=== PATIENT | female | born 1960 | race Caucasian/White ===

== ENCOUNTER 2017-07-08 10:35 | Emergency (ER) | payer OTHER ==
--- NOTE | 2017-07-08 10:40 | EDPHY ---
H & P HPI/ROS: Chief Complaint: Back and ankle pain HPI: 56-year-old with a history of scoliosis, chronic back pain status post laminectomy chronic ankle pain presenting with worsening ankle pain for the last 4-5 days. Patient states she has known arthritis in her left ankle but the pain is been worse. She is able to ambulate. No recent falls or traumatic injuries. No new numbness or weakness. No calf pain or swelling. No redness. Patient states the pain is primarily in the lateral aspect of her ankle. Is similar to prior episodes. She has been taking 1 naproxen the day this week without any relief. This morning she took half a Percocet. She is presenting today requesting an x-ray to see if there been any changes as her last x-ray was about 4 years ago. She has not followed up with primary care physician, back specialist. She has not been seen by Orthopedics. She is ambulating with discomfort. Her back pain is a little bit worse but primarily at its baseline. ROS: 10 point Review of Systems is negative except as noted in the HPI. PMH: Asthma, hypertension, congestive heart failure, arthritis, scoliosis, status post laminectomy Social History: No smoking, no alcohol, no recreational drug use Family History: non-contributory Physical Exam: Gen: Awake, Alert, No Distress, obese HEENT: Nose: no rhinorrhea Eyes: PERRLA, EOMI Mouth: Moist mucosa Neck: Supple, no JVD Chest: nontender, lungs clear to auscultation Heart: S1, S2 normal, no murmur Abd: Soft, non-tender, no guarding Back: no CVA tenderness, no midline tenderness Ext: no edema, non-tender, she has full range of motion of her left hip, left knee, left ankle. There is no bony tenderness. There is no redness. She has 2 + dorsalis pedis pulses. Sensations intact in all dermatomes. Skin: no rash Neuro: CN II-XII intact, Sensation grossly intact, Strength 5/5 in bilateral upper and lower extremities - Personal History Tetanus Vaccine Date: within 10 years - Medical/Surgical History Hx Asthma: Yes Hx Chronic Respiratory Disease: No Hx Diabetes: No Hx Cardiac Disease: Yes Hx Renal Disease: No Hx Cirrhosis: No Hx Alcoholism: No Hx HIV/AIDS: No Hx Splenectomy or Spleen Trauma: No Other PMH: asthma, HTN, CHF. arthritis. Laminectomy on back. toe surg - Social History Smoking Status: Current every day smoker Constitutional: Initial Vital Signs Temperature (C) 36.9 C 07/08/17 10:43 Heart Rate 85 07/08/17 10:43 Respiratory Rate 20 07/08/17 10:43 O2 Sat (%) 95 07/08/17 10:43 O2 Delivery Mode Room Air Allergies/Adverse Reactions: No Known Allergies Allergy (Verified 08/14/16 10:06) Home Medications: Medication Instructions Recorded Advair 08/08/10 LISINOPRIL 08/08/10 Albuterol [Proventil Inhaler] 1 - 2 puffs IH Q4H #1 mdi 08/14/16 Naproxen 08/14/16 Oxycodone HCl 08/14/16 Medical Decision Making ED Course/Re-evaluation: 56-year-old woman with new exacerbation of her chronic pain. She has not been optimizing her home medications. She has not been following up with her primary care physician. I do not see an indication for any imaging at this time. She has no new focal tenderness. No deformities. No traumatic injuries. No new the neurologic symptoms. No findings suggestive of DVT, fracture, or acute spinal process. She has no erythema. I have recommended that she maximize her anti-inflammatory use. She can then take Percocet that she artery has for breakthrough pain. I have suggested she follow up with Orthopedics for further evaluation. She also have spine surgery in place. I have told her that any imaging today will not make any changes to her management at this time. She would benefit most from evaluation by Orthopedics and Spine prior to any imaging. That can be obtained in the office as well. Patient is agreement. Will be discharged with the pain management plan as outlined, she will follow up as needed. She will return for any worsening symptoms or concerns. Departure - Departure Disposition: Home, Routine, Self-Care Clinical Impression: Ankle pain, Back pain Condition: Fair Instructions: Arthralgia (ED), Back Pain (ED) Additional Instructions: Follow up with you PCP, back specialist and Orthopedics in 3-4 days. Continue taking naproxen according to package instructions. Take an over the counter antacid such as Pepcid while taking the Naproxen. You may take your percocet as prescribed for breakthrough pain. Referrals: JESSI DOHERTY [Other] - As per Instructions Sreedhar Craig MD [Medical Doctor] - As per Instructions
[2017-07-08 10:47] VITALS: PULSE 85; RESP 20; TEMP 98.4; O2SAT 95
[2017-07-08 11:48] VITALS: BP 159/93
== END 2017-07-08 11:16 | disposition home or self-care (01) ==
LOC: CED 10:35
DX: M54.9 Dorsalgia, unspecified (principal); M25.572 Pain in left ankle and joints of left foot; J45.909 Unspecified asthma, uncomplicated; I11.0 Hypertensive heart disease with heart failure; I50.9 Heart failure, unspecified; F17.200 Nicotine dependence, unspecified, uncomplicated

== ENCOUNTER → 2018-06-19 | Outpatient (CLI) | payer OTHER | LOC: FIMAGING 13:24 | PROVIDERS: ATTEND Internal Medicine Geriatric Medicine | DX: M51.34 Other intervertebral disc degeneration, thoracic region (principal); M47.894 Other spondylosis, thoracic region; M41.86 Other forms of scoliosis, lumbar region; M48.061 Spinal stenosis, lumbar region without neurogenic claudication; M51.36 Other intervertebral disc degeneration, lumbar region ==

== ENCOUNTER 2018-07-06 13:06 | Emergency (ER) | payer OTHER, MEDICAID ==
--- NOTE | 2018-07-06 13:43 | EDPHY ---
H & P Time Seen by Provider: 07/06/18 13:17 HPI/ROS: HPI Rapid weight gain. History of CHF. 57-year-old female by ambulance. This patient has a complicated past medical history. She was sent to the emergency department from the office of her primary care physician, Dr. Mica Benjamin, with complaint of rapid weight gain, 20 lb over the last [address] Benjamin is requesting that we get a CT abdomen and pelvis with IV contrast to evaluate for possible lymphoma as well as bilateral lower extremity ultrasounds. She is also requesting a CHF workup. The patient does have a history of CHF and cardiomyopathy. She also has a history of a stroke in February of this year. 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 Patient denies being significantly shortness of breath. She has recently been treated with compression stockings by her primary care physician. She is not on Lasix. She does not have any other complaints. Dr. Benjamin tells me the patient does not have any contraindications to Lasix. ROS: Constitutional: No fever, no chills. As above. Eyes: No discharge. No changes in vision. ENT: No sore throat. No nasal congestion or rhinorrhea. Respiratory: No cough. No shortness of breath. Cardiac: No chest pain, no palpitations. Gastrointestinal: No abdominal pain, no vomiting, no diarrhea. Genitourinary: No hematuria. No dysuria or increased frequency with urination. Musculoskeletal: No back pain. No neck pain. No myalgias or arthralgias. Skin: No rashes. Neurological: No headache. No focal weakness or altered sensation. Past medical history: Asthma, hypertension, CHF, cardiomyopathy, arthritis, as above. Social history: Nonsmoker. She is here by herself. No alcohol. Physical Exam: General Appearance: Alert, no distress. Morbid obesity. This patient is responding to questions appropriately and in full sentences. This patient appears well-hydrated and well-nourished. Eyes: Pupils equal and round no pallor or injection. No lid edema, erythema or injection. Respiratory: There are no retractions, lungs are clear to auscultation anteriorly with good air movement bilaterally. No tachypnea. Cardiovascular: Regular rate and rhythm. Distant heart sounds. No murmur. Gastrointestinal: Obese habitus. Abdomen is soft and nontender, no masses, bowel sounds normal. No focal tenderness at McBurney's point. No Hamilton sign. Neurological: Motor sensory function is grossly intact. Cranial nerves are normal. Gait is normal. Skin: Warm and dry, no rashes. Musculoskeletal: Neck is supple and nontender. Extremities are symmetrical with 2+ pitting edema and compression stockings on both legs. All joints range without pain or impingement. Psychiatric: No agitation. No depression. Database: EKG: EKG time is 3:04 p.m.; EKG shows a narrow complex normal sinus rhythm with a ventricular rate of 62. Borderline T-wave changes. PVCs noted. The MO, QRS, QT intervals are within normal limits. There are no ST-T wave changes indicative of ischemic or injury pattern. No evidence of right heart strain. Interpreted by me. Imaging: Chest x-ray AP portable; the cardiac mediastinal silhouette is unremarkable.No evidence of infiltrate or pneumothorax. No acute cardiopulmonary disease process noted. Interpreted by me. CT abdomen and pelvis with IV contrast: This study is essentially negative for significant pathology. Soft tissue edema noted. No obstructive process or other reason for the patient's recent weight gain. Results were discussed with staff radiologist Dr. Stone Whalen. Doppler ultrasounds of the lower extremities: Extensive bilateral symmetric soft tissue edema. No evidence of DV T. Results were discussed with staff radiologist Dr. Bandar Baker. Procedures: Emergency department course: Triage vital signs reviewed. She is moderately hypertensive. Vital signs otherwise normal. She is 94% on room air. IV placed. She was placed on a picker tender helper. EKG obtained and reviewed by myself. 3:30 p.m., discussed the patient's emergency department workup with her primary care physician Dr. Benjamin. Her workup has essentially been unremarkable with no clear etiology for her recent weight gain and fluid retention in her lower extremities. I am still waiting on a urinalysis. However, with a normal BUN and creatinine is significant nephrotic syndrome is unlikely. The patient will be given 40 mg of IV Lasix in the emergency department. Plan will then be to discharge her home with follow up with Dr. Benjamin who will see her tomorrow. 3:45 p.m., patient re-evaluated. Resting comfortably at this time. Results of emergency department workup reviewed with her thoroughly. Plan of management as above discussed. She feels comfortable going home. She understands her follow-up with Dr. Benjamin. Return to emergency department precautions were reviewed with her. All of her questions were answered. She was discharged from the emergency department in good condition. Differential Diagnosis: The differential diagnosis on this patient includes but is not limited to CHF, lymphoma, hypoalbuminemia. DVT, PE unlikely. This represents a partial list of diagnoses considered. These considerations are based on history, physical exam, past history, reassessment and diagnostic testing. Smoking Status: Former smoker Constitutional: Initial Vital Signs Temperature (C) 37 C 07/06/18 13:11 Heart Rate 69 07/06/18 13:11 Respiratory Rate 18 07/06/18 13:11 Blood Pressure 146/75 H 07/06/18 13:11 O2 Sat (%) 94 07/06/18 13:11 O2 Delivery Mode Room Air Allergies/Adverse Reactions: No Known Allergies Allergy (Verified 08/14/16 10:06) Home Medications: Medication Instructions Recorded ALENDRONATE SODIUM 07/06/18 Advair 250/50 (*) 07/06/18 Aspirin 81mg (*) 07/06/18 Bactrim DS 07/06/18 Nicoderm Cq 07/06/18 Omeprazole 07/06/18 Pravastatin Sodium 07/06/18 Prednisone 07/06/18 Toprol Xl 07/06/18 Vitamin B Complex 07/06/18 Vitamin D3 07/06/18 azaTHIOprine 07/06/18 traMADol 07/06/18 Medical Decision Making - Diagnostics Imaging Results: Imaging Impressions Chest X-Ray 07/06/18 13:29 Impression: No source for weight gain identified. Abdomen CT 07/06/18 13:37 Impression: Scattered areas of subcutaneous fat edema, greatest in the right flank, where there is also skin edema. Otherwise no source for weight gain identified. General information for patients regarding this examination can be found at [email or web address]. If you have questions or comments about this report, please contact me at (hospital) or [phone] (cell). Extremity Venous Study 07/06/18 13:37 Impression: No deep venous thrombosis bilateral legs. Results called to Dr. Javan Deng at 2:20 PM - Data Points Laboratory Results: Laboratory Results 07/06/18 13:15 07/06/18 13:15 07/06/18 07/06/18 07/06/18 13:15 13:15 13:15 WBC 8.38 10^3/uL 10^3/uL (3.80-9.50) RBC 4.40 10^6/uL 10^6/uL (4.18-5.33) Hgb 13.8 g/dL g/dL (12.6-16.3) Hct 41.9 % % (38.0-47.0) MCV 95.2 fL fL (81.5-99.8) MCH 31.4 pg pg (27.9-34.1) MCHC 32.9 g/dL g/dL (32.4-36.7) RDW 15.7 % H % (11.5-15.2) Plt Count 190 10^3/uL 10^3/uL (150-400) MPV 10.8 fL fL (8.7-11.7) Neut % (Auto) 89.5 % H % (39.3-74.2) Lymph % (Auto) 5.4 % L % (15.0-45.0) Finney % (Auto) 3.6 % L % (4.5-13.0) Eos % (Auto) 0.0 % L % (0.6-7.6) Baso % (Auto) 0.4 % % (0.3-1.7) Nucleat RBC Rel Count 0.0 % % (0.0-0.2) Absolute Neuts (auto) 7.50 10^3/uL H 10^3/uL (1.70-6.50) Absolute Lymphs (auto) 0.45 10^3/uL L 10^3/uL (1.00-3.00) Absolute Monos (auto) 0.30 10^3/uL 10^3/uL (0.30-0.80) Absolute Eos (auto) 0.00 10^3/uL L 10^3/uL (0.03-0.40) Absolute Basos (auto) 0.03 10^3/uL 10^3/uL (0.02-0.10) Absolute Nucleated RBC 0.00 10^3/uL 10^3/uL (0-0.01) Immature Gran % 1.1 % % (0.0-1.1) Immature Gran # 0.09 10^3/uL 10^3/uL (0.00-0.10) RBC/WBC/PLT Morphology TNP Platelet Estimate TNP Sodium 140 mEq/L mEq/L (135-145) Potassium 4.4 mEq/L mEq/L (3.3-5.0) Chloride 106 mEq/L mEq/L (97-110) Carbon Dioxide 27 mEq/l mEq/l (22-31) Anion Gap 7 mEq/L mEq/L (6-14) BUN 17 mg/dL mg/dL (7-23) Creatinine 1.0 mg/dL mg/dL (0.6-1.0) Estimated GFR 57 Glucose 125 mg/dL H mg/dL (70-100) Calcium 9.4 mg/dL mg/dL (8.5-10.4) Total Bilirubin 0.7 mg/dL mg/dL (0.1-1.4) Conjugated Bilirubin 0.1 mg/dL mg/dL (0.0-0.5) Unconjugated Bilirubin 0.6 mg/dL mg/dL (0.0-1.1) AST 19 IU/L IU/L (14-46) ALT 27 IU/L IU/L (9-52) Alkaline Phosphatase 60 IU/L IU/L (38-126) Troponin I 0.015 ng/mL ng/mL (0.000-0.034) NT-Pro-B Natriuret Pep 413 pg/mL H pg/mL (0-125) Total Protein 6.1 g/dL L g/dL (6.3-8.2) Albumin 3.8 g/dL g/dL (3.5-5.0) Departure - Departure Disposition: Home, Routine, Self-Care Clinical Impression: Rapid weight gain, Fluid retention in legs Condition: Good Instructions: Leg Edema (ED) Additional Instructions: Read and follow provided instructions. Follow-up with your primary care physician, Dr. Mica Benjamin, tomorrow for re- evaluation. I spoke with her twice in the emergency department. She is aware of your test results and will see you tomorrow. Take your medication as prescribed. Return to the emergency department for worsening symptoms, chest pain, difficulty breathing or other serious concerns. Referrals: Patient,NotPresent [Primary Care Provider] - As per Instructions
[2018-07-06 13:48] LABS: PLATELET COUNT 190 10^3/uL (150-400)
[2018-07-06] MEDS ORDERED: IOPAMIDOL (ISOVUE-300) 100 ML BTL ONE ×2 (13:55→14:21)
[2018-07-06] MEDS ORDERED: FUROSEMIDE 40 MG/4 ML VIAL IVP ONE (15:15)
--- NOTE | 2018-07-06 16:44 | ASMTLACE ---
LACE Length of stay for Answers: Less than 1 day current admission Acuity / Level of Answers: No Care: Did the patient have an inpatient admission? Comorbidities - select Answers: Cerebrovascular disease all that apply (CVA, TIA, aneurysms, vasc ular dementia) Congestive heart failure Other Notes: asthma, HTN, cardiomyop ath y, arthritis # of Emergency department Answers: 1-2 visits in the last 6 months Social determinants Answers: Mental health diagnosis (anxiety, depression, pers onality disorders, etc.) Score: 8 Date Signed: 07/06/2018 04:43 PM Electronically Signed By:Delia Georges RN
--- NOTE | 2018-07-06 16:51 | CPEKG ---
Test Reason : OPEN Blood Pressure : / mmHG Vent. Rate : 062 BPM Atrial Rate : 061 BPM P-R Int : 153 ms QRS Dur : 092 ms QT Int : 409 ms P-R-T Axes : 063 -35 012 degrees QTc Int : 416 ms Sinus rhythm Ventricular premature complex Left axis deviation Borderline T wave abnormalities Confirmed by Javan Licona ([id number]) on 07/06/2018 4:50:34 PM Referred By: Confirmed By:Javan Licona
--- NOTE | 2018-07-06 16:52 | ASMTDCNOTE ---
Case Management Discharge Discharge Order Complete? Answers: Yes Patient to Obtain Answers: Other Notes: femi bedside Medications delivery Transportation Arranged Answers: Family/Friends Discharge Comments Notes: 07/06/2018 Case Management Note Pt was evaluated in the ED at the request of Dr. Benjamin, director of the [facility] program. Met w/pt to discuss discharge needs. Phone call to Rossy Sotelo social work administrator at the [facility] program. Pt has home care, attends the day program twice a week, and visits with a psychotherapist for her depression and anxiety. Discussed with Dr. Benjamin. Dr. Benjamin discussed discharge plan with patient. Dr. Benjamin called in a script to [facility] with plans to see patient in the morning at clinic. Friend Clemencia Garcia [phone] is coming to transport pt home. Pt [employer] Cylinder Mechanic Melissa Parks is aware of ED visit as Dr. Benjamin left a VM. Brother Gene Eisenberg is [facility] [phone] and lives out of state. No further case management d/c needs identified. Date Signed: 07/06/2018 04:51 PM Electronically Signed By:Delia Georges RN
[2018-07-06 18:09] VITALS: BP 144/69
== END 2018-07-06 17:50 | disposition home or self-care (01) ==
LOC: EDUNIT#
DX: R63.5 Abnormal weight gain (principal); R60.0 Localized edema; I10 Essential (primary) hypertension; Z86.79 Personal history of other diseases of the circulatory system; Z86.73 Personal history of transient ischemic attack (TIA), and cerebral infarction without residual deficits
CPT/HCPCS: 71045; 74177; 93005; 93970; 96374; 99285; J1940; Q9967

== ENCOUNTER → 2018-10-06 | Outpatient (CLI) | payer OTHER | LOC: FIMAGING 15:40 | PROVIDERS: ATTEND Internal Medicine Geriatric Medicine | DX: M79.652 Pain in left thigh (principal) ==

== ENCOUNTER → 2018-10-10 | Outpatient (CLI) | payer OTHER | LOC: FIMAGING 13:53 | PROVIDERS: ATTEND Internal Medicine Geriatric Medicine | DX: M17.12 Unilateral primary osteoarthritis, left knee (principal) ==

== ENCOUNTER 2019-01-04 20:03 | Inpatient (IN) | payer OTHER ==
--- NOTE | 2019-01-04 20:11 | EDPHY ---
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 At the time she was found to have widespread vasculitis on cerebral angiogram. She was initially on high-dose IV steroids and then gradually transition to oral steroids and then more recently to azathioprine by her senior technical architect. Once on Tuesday and again today she began having left eye intermittent vision loss. She was seen by her assistant store manager operations Dr. Sajan Erickson today who recommended she come immediately to the emergency department. He called me and request that she receive IV Solu- Medrol 1 g every day for 3 days. He suggested also that she have a repeat MRI and MR angio because last time they did discover some small lacunar infarcts that had been clinically silent. I also received a call from the patient's primary Dr. Mica Fonseca who requested patient treatment. Her symptoms in the left eye consisted of visual decrease that she describes as similar to when you see black after rubbing her eye too hard. She states that the last for several minutes. She states that she sees very blurry and shadow in that eye at baseline. She had her left eye dilated today at the assistant store manager operations. Severity: Moderate Modifying factors: None REVIEW OF SYSTEMS: Constitutional: denies: chills, fever, recent illness, recent injury EENTM: denies: blurred vision, double vision, nose congestion Respiratory: denies: cough, shortness of breath Cardiac: denies: chest pain, irregular heart rate, lightheadedness, palpitations Gastrointestinal/Abdominal: denies: abdominal pain, diarrhea, nausea, vomiting, blood streaked stools Genitourinary: denies: dysuria, frequency, hematuria, pain Musculoskeletal: denies: joint pain, muscle pain Skin: denies: lesions, rash, jaundice, bruising Neurological: denies: headache, numbness, paresthesia, tingling, dizziness, weakness Hematologic/Lymphatic: denies: blood clots, easy bleeding, easy bruising Immunologic/allergic: denies: HIV/AIDS, transplant 10 systems reviewed and negative except as noted EXAM: GENERAL: Well-appearing, well-nourished and in no acute distress. HEAD: Atraumatic, normocephalic. EYES: Pupils unequal, left dilated. No vision in the right. She states that she sees shaves and blurriness in the left eye which is slightly worse than baseline. Peripheral vision appears to be intact. Visual acuities non- existent in the right eye, 20/70 in the left. ENT: TMs normal, nares patent, oropharynx clear without exudates. Moist mucous membranes. NECK: Normal range of motion, supple without lymphadenopathy or JVD. LUNGS: Breath sounds clear to auscultation bilaterally and equal. No wheezes rales or rhonchi. HEART: Regular rate and rhythm without murmurs, rubs or gallops. ABDOMEN: Soft, nontender, normoactive bowel sounds. No guarding, no rebound. No masses appreciated. BACK: No CVA tenderness, no spinal tenderness, step-offs or deformities EXTREMITIES: Normal range of motion, no pitting or edema. No clubbing or cyanosis. NEUROLOGICAL: Cranial nerves II through XII grossly intact other than visual symptoms above. Normal speech, normal gait. 5/5 strength, normal movement in all extremities, normal sensation, normal reflexes PSYCH: Normal mood, normal affect. SKIN: Warm, dry, normal turgor, no visible rashes or lesions. Source: Patient Exam Limitations: No limitations - Personal History Tetanus Vaccine Date: within 10 years - Medical/Surgical History Hx Asthma: Yes Hx Chronic Respiratory Disease: No Hx Diabetes: No Hx Cardiac Disease: Yes Hx Renal Disease: No Hx Cirrhosis: No Hx Alcoholism: No Hx HIV/AIDS: No Hx Splenectomy or Spleen Trauma: No Other PMH: asthma, HTN, CHF, CVA 03/13 without deficits. arthritis. Laminectomy on back. toe surg - Family History Significant Family History: No pertinent family hx - Social History Smoking Status: Former smoker Alcohol Use: None Constitutional: Initial Vital Signs Temperature (C) 36.7 C 01/04/19 20:07 Heart Rate 85 01/04/19 20:07 Respiratory Rate 18 01/04/19 20:07 Blood Pressure 143/99 H 01/04/19 20:07 O2 Sat (%) 92 01/04/19 20:07 O2 Delivery Mode Nasal Cannula O2 (L/minute) 2 Allergies/Adverse Reactions: No Known Allergies Allergy (Verified 08/14/16 10:06) Home Medications: Medication Instructions Recorded RX: Aspirin EC [Aspirin EC 81 mg 81 mg PO DAILY 01/04/19 (*)] RX: Cholecalciferol Vit D3 2,000 units PO DAILY 01/04/19 [Vitamin D3 (*)] RX: Cyanocobalamin [Vitamin B12 1,000 mcg PO DAILY 01/04/19 (*)] RX: Furosemide [Lasix 40 MG (*)] 40 mg PO DAILY 01/04/19 RX: Metoprolol Succinate 25 mg PO DAILY 01/04/19 RX: Pravastatin Sodium [Pravachol] 80 mg PO DAILY 01/04/19 RX: Vit C/Dl-E AC/Lut/Copper/Znox 1 each PO DAILY 01/04/19 [Preservision Softgel] RX: azaTHIOprine [Imuran 50 mg (*)] 100 mg PO DAILY 01/04/19 RX: LORazepam [Ativan (*)] 1 mg PO Q4HRS PRN tab 01/06/19 RX: OLANZapine [OLANZapine (*)] 5 mg PO ONCE PRN tab 01/06/19 RX: Pantoprazole Sodium [Protonix] 40 mg PO DAILY #30 tablet. 01/06/19 Sulfamethox/Tmp 800/160 mg 1 tab PO MWF 14 Days tab 01/06/19 [Bactrim Ds] methylPREDNISolone 64 mg PO DAILY 3 Days tablet 01/06/19 [Methylprednisolone] Medical Decision Making ED Course/Re-evaluation: The patient was brought immediately back to the room an IV started and a g of Solu-Medrol. I have ordered an MRI and MRA and will admit for further treatment. Patient is pleasant. She does not have any acute weakness or numbness or speech changes. No headache. 9:00 p.m. I discussed the case with Dr. Hair who is hesitant to admit this patient without Rheumatology consulting. I spoke with the patient and found the name of her senior technical architect Dr. Abdelrahman Thomas. I do not know if he has privileges here. We have placed a call to his office. There is no senior technical architect on-call tonight. 9:25 p.m. I discussed the case with Dr. Griffin from Rheumatology. She is partner with Dr. Thomas. She will consult tomorrow. MRIs pending Differential Diagnosis: Partial list of the Differential diagnosis considered include but were not limited to; vasculitis, CVA and although unlikely based on the history and physical exam, I also considered tumor, trauma. - Data Points Laboratory Results: Laboratory Results 01/05/19 04:31 01/05/19 04:31 Medications Given: Discontinued Medications Acetaminophen (Tylenol) 650 mg PO Q4HRS PRN PRN Reason: Pain, Mild/Fever, Can Take PO Stop: 07/03/19 22:42 Last Admin: 01/05/19 12:01 Dose: 650 mg Azathioprine (Imuran) 100 mg PO DAILY QING Stop: 07/04/19 08:59 Last Admin: 01/06/19 08:40 Dose: 100 mg Cholecalciferol (Vitamin D) 2,000 units PO DAILY QING Stop: 07/04/19 08:59 Last Admin: 01/06/19 08:40 Dose: 2,000 units Enoxaparin Sodium (Lovenox) 40 mg SC DAILY QING Stop: 07/04/19 16:29 Last Admin: 01/06/19 08:43 Dose: 40 mg Famotidine (Pepcid) 20 mg PO DAILY QING Stop: 07/04/19 09:59 Last Admin: 01/06/19 08:39 Dose: 20 mg Furosemide (Lasix) 40 mg PO DAILY QING Stop: 07/04/19 08:59 Last Admin: 01/06/19 08:38 Dose: 40 mg Methylprednisolone Sodium (Succinate 1,000 mg/ Dextrose) 100 mls @ 100 mls/hr IV EDNOW ONE Stop: 01/04/19 21:29 Last Admin: 01/04/19 20:32 Dose: 100 mls Methylprednisolone Sodium (Succinate 1 gm/ Dextrose) 108 mls @ 108 mls/hr IV DAILY QING Stop: 01/07/19 10:59 Last Admin: 01/06/19 08:45 Dose: 108 mls Furosemide 80 mg/ Dextrose 50 mls @ 100 mls/hr IV ONCE ONE Stop: 01/05/19 16:29 Last Admin: 01/05/19 17:45 Dose: 50 mls Insulin Human Lispro (Humalog Lispro) 0 unit SC TIDMEAL QING PRN Reason: Protocol Stop: 07/04/19 17:59 Last Admin: 01/06/19 08:43 Dose: 4 units Lorazepam (Ativan Injection) 1 mg IVP EDNOW ONE Stop: 01/04/19 20:51 Last Admin: 01/04/19 21:40 Dose: 1 mg Lorazepam (Ativan Injection) 1 mg IVP EDNOW ONE Stop: 01/04/19 22:45 Last Admin: 01/04/19 23:09 Dose: 1 mg Lorazepam (Ativan) 1 mg PO Q4HRS PRN PRN Reason: Anxiety, Able to Take PO Stop: 07/04/19 17:30 Last Admin: 01/06/19 03:23 Dose: 1 mg Metoprolol Succinate (Toprol Xl) 25 mg PO DAILY QING Stop: 07/04/19 08:59 Last Admin: 01/06/19 08:39 Dose: 25 mg Multivitamins/Minerals (Preservision Areds2 Formula) 1 each PO DAILY@0800 QING Stop: 07/04/19 07:59 Last Admin: 01/06/19 08:39 Dose: 1 each Pravastatin Sodium (Pravachol) 80 mg PO DAILY QING Stop: 07/04/19 08:59 Last Admin: 01/06/19 08:39 Dose: 80 mg Tramadol HCl (Ultram) 50 mg PO Q6HRS PRN PRN Reason: Pain, Moderate Able to Take PO Stop: 07/04/19 00:19 Last Admin: 01/06/19 08:40 Dose: 50 mg Vitamin B Complex (Vitamin B12) 1,000 mcg PO DAILY QING Stop: 07/04/19 08:59 Last Admin: 01/06/19 08:39 Dose: 1,000 mcg Departure - Departure Disposition: [facility] Clinical Impression: Cerebral vasculitis, Left eye vision changes Condition: Fair
[2019-01-04] MEDS ORDERED: methylPREDNISolone SOD SUCC 1,000 MG in D5W 100 ML IV SCH (20:30)
[2019-01-04] MEDS ORDERED: methylPREDNISolone SOD SUCC 1,000 MG in D5W 100 ML IV ONE (20:30)
[2019-01-04 20:32] LABS: PLATELET COUNT 164 10^3/uL (150-400)
[2019-01-04 20:46] LABS: INR 0.96 (0.83-1.16); PROTIME(PATIENT) 12.4 SEC (12.0-15.0)
[2019-01-04] MEDS ORDERED: LORazepam 2 MG/ML INJ IVP ONE ×2 (20:50→22:44)
[2019-01-04] MEDS ORDERED: LORazepam 2 MG/ML INJ ONE (20:51)
[2019-01-04] MEDS ORDERED: GADOBUTROL 10 ML VIAL IVP ONE (22:03)
[2019-01-04] MEDS ORDERED: ONDANSETRON 4 MG/2 ML VIAL IVP PRN (22:43)
[2019-01-04] MEDS ORDERED: ACETAMINOPHEN 325 MG TAB PO PRN (22:43)
[2019-01-04] MEDS ORDERED: ONDANSETRON DISINTEGRATING 4 MG TAB PO PRN (22:43)
--- NOTE | 2019-01-05 00:33 | PDGENHP ---
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 The patient lost the vision of her R eye 10 months ago and was found to have acute L thalamic infarct w/ work-up suggestive of COPY MANAGER vasculitis. She was admitted to [facility] during this episode, the records are available in [facility], which I reviewed. At that time she was treated with high dose steroids but experienced no improvement. Later she was started on azathioprine as a steroid sparing agent. She has been taking this daily and has been off of all steroids for about 2 months. 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 This only lasted 1-2 minutes so she did not think much of this. Today she had 2 more similar episodes. She thinks it involved her entire visual field. She mentioned this to her doctor who sent her to the ED for evaluation. At the time of my evaluation the vision in her L eye is normal. An MRI and MRA were obtained, which did not demonstrate acute stroke. They showed some nonspecific changes that could be consistent with vasculitis but noting definitive. She is being admitted for high dose steroids and observation. Case discussed with Dr. Hair. History Information - Allergies/Home Medication List Allergies/Adverse Reactions: No Known Allergies Allergy (Verified 08/14/16 10:06) Home Medications: Aspirin EC [Aspirin EC 81 mg (*)] 81 mg PO DAILY 01/04/19 [Last Taken 01/04/19] Cholecalciferol Vit D3 [Vitamin D3 (*)] 2,000 units PO DAILY 01/04/19 [Last Taken 01/04/19] Cyanocobalamin [Vitamin B12 (*)] 1,000 mcg PO DAILY 01/04/19 [Last Taken ] Furosemide [Lasix 40 MG (*)] 40 mg PO DAILY 01/04/19 [Last Taken 01/03/19] Metoprolol Succinate 25 mg PO DAILY 01/04/19 [Last Taken 01/04/19] Pravastatin Sodium [Pravachol] 80 mg PO DAILY 01/04/19 [Last Taken 01/04/19] Vit C/Dl-E AC/Lut/Copper/Znox [Preservision Softgel] 1 each PO DAILY 01/04/19 [ Last Taken 01/04/19] azaTHIOprine [Imuran 50 mg (*)] 100 mg PO DAILY 01/04/19 [Last Taken 01/04/19] I have personally reviewed and updated: family history, medical history - Past Medical History CVA Additional medical history: Placoid pigment epitheliopathy. COPY MANAGER vasculitis - Surgical History Reports: spinal surgery - Family History Positive for: cancer Additional family history: Denies family hx of ocular or autoimmune disease - Social History Smoking Status: Former smoker Alcohol Use: None Review of Systems Review of Systems: ROS: 10pt was reviewed & negative except for what was stated in HPI & below Physical Exam Physical Exam: Temp Pulse Resp BP Pulse Ox 36.7 C 78 16 145/95 H 90 L 01/04/19 23:31 01/04/19 23:31 01/04/19 23:31 01/04/19 23:31 01/04/19 23:31 Constitutional: no apparent distress, obese Eyes: EOMI, other (L pupil reactive, R pupil non-reactive) Ears, Nose, Mouth, Throat: moist mucous membranes, no oral mucosal ulcers Cardiovascular: regular rate and rhythym, systolic murmur Respiratory: no respiratory distress, clear to auscultation Gastrointestinal: normoactive bowel sounds, soft, non-tender abdomen Skin: warm, normal color Musculoskeletal: full muscle strength, no muscle tenderness Neurologic: sensation intact bilaterally, No weakness, No facial droop Psychiatric: interacting appropriately, not anxious Lab Data & Imaging Review 01/04/19 20:19 01/04/19 20:19 WBC 4.47 10^3/uL (3.80-9.50) 01/04/19 20:19 RBC 4.62 10^6/uL (4.18-5.33) 01/04/19 20:19 Hgb 13.8 g/dL (12.6-16.3) 01/04/19 20:19 Hct 40.8 % (38.0-47.0) 01/04/19 20:19 MCV 88.3 fL (81.5-99.8) 01/04/19 20:19 MCH 29.9 pg (27.9-34.1) 01/04/19 20:19 MCHC 33.8 g/dL (32.4-36.7) 01/04/19 20:19 RDW 14.6 % (11.5-15.2) 01/04/19 20:19 Plt Count 164 10^3/uL (150-400) 01/04/19 20: MPV 11.0 fL (8.7-11.7) 01/04/19 20:19 Neut % (Auto) 65.0 % (39.3-74.2) 01/04/19 20: Lymph % (Auto) 24.6 % (15.0-45.0) 01/04/19 20: Holt % (Auto) 7.8 % (4.5-13.0) 01/04/19 20: Eos % (Auto) 2.0 % (0.6-7.6) 01/04/19: Baso % (Auto) 0.4 % (0.3-1.7) 01/04/19: Nucleat RBC Rel Count 0.0 % (0.0-0.2) 01/04/19 20: Absolute Neuts (auto) 2.90 10^3/uL (1.70-6.50) 01/04/19 20: Absolute Lymphs (auto) 1.10 10^3/uL (1.00-3.00) 01/04/19 20: Absolute Monos (auto) 0.35 10^3/uL (0.30-0.80) 01/04/19 20: Absolute Eos (auto) 0.09 10^3/uL (0.03-0.40) 01/04/19: Absolute Basos (auto) 0.02 10^3/uL (0.02-0.10) 01/04/19: Absolute Nucleated RBC 0.00 10^3/uL (0-0.01) 01/04/19: Immature Gran % 0.2 % (0.0-1.1) 01/04/19: Immature Gran # 0.01 10^3/uL (0.00-0.10) 01/04/19 20:19 PT 12.4 SEC (12.0-15.0) 01/04/19 20:19 INR 0.96 (0.83-1.16) 01/04/19 20:19 Sodium 137 mEq/L (135-145) 01/04/19 20:19 Potassium 4.3 mEq/L (3.5-5.2) 01/04/19 20:19 Chloride 105 mEq/L (97-110) 01/04/19 20:19 Carbon Dioxide 24 mEq/l (22-31) 01/04/19 20:19 Anion Gap 8 mEq/L (6-14) 01/04/19 20:19 BUN 22 mg/dL (7-23) 01/04/19 20:19 Creatinine 0.9 mg/dL (0.6-1.0) 01/04/19 20:19 Estimated GFR > 60 01/04/19 20:19 Glucose 95 mg/dL (70-100) 01/04/19 20:19 Calcium 9.7 mg/dL (8.5-10.4) 01/04/19 20:19 Imaging Review: Imaging Impressions Brain MRI 01/04/19 20:08 Impression: 1. Bilateral FLAIR signal abnormalities with differential considerations including chronic microvascular ischemic gliosis (secondary to vasculitis and/ or atherosclerosis), old posttraumatic or postinflammatory changes, or demyelination. 2. There are a couple of left-sided foci of hemosiderin deposition, which may be associated with tiny angiomas, or alternatively could represent early evidence of an amyloid angiopathy. 3. There is no abnormal cerebral or leptomeningeal enhancement, or evidence of an acute or subacute infarct. Findings were discussed with Dao Deleon MD at 23:45, on 01/04/2019. Head MRA 01/04/19 20:09 Impression: Questionable areas of subtle luminal irregularity which may reflect an underlying vasculitis. There is no occlusive disease observed. Findings were discussed with Dao Deleon M.D. at 23:45, on 01/04/2019. 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 Plan: 1. L eye visual disturbance - Transient and has occurred 3 times over the last 5 days, each episode lasting only 1-2 minutes. 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 MRI/MRA obtained on admission did not demonstrate evidence of acute or sub-acute stroke. Questionable areas of subtle luminal irregularity which may reflect an underlying vasculitis were noted. - Admit for observation - S/p methylprednisolone 1 g IV x1 - Rheumatology consulted, will evaluate patient in the morning 2. Hx placoid pigment epitheliopathy and COPY MANAGER vasculitis - Flare occurred in February of 2018 and was treated at [facility] She is maintained on azathioprine as an outpatient and has been off of steroid therapy for about 2 months. - Acute management as above 3. Hx thalamic CVA - Thought to be secondary to COPY MANAGER vasculitis. - Will hold ASA pending initial work-up - Continue statin 4. HTN - Continue metoprolol, furosemide. 5. Arthritis - Tramadol PRN Diet - Regular Code - Full Ppx - SCDs Dispo - Admit under observation status
[2019-01-05] MEDS: traMADol 50 MG TAB PO PRN ×2 (01:11→18:59)
[2019-01-05 04:51] LABS: PLATELET COUNT 150 10^3/uL (150-400)
[2019-01-05] MEDS: CYANO/VITAMIN B12 1000 MCG TAB PO SCH (09:25)
[2019-01-05] MEDS: PRESERVISION AREDS2 FORMULA EYE VIT 1 EACH PO SCH (09:26)
[2019-01-05] MEDS: azaTHIOprine 50 MG TAB PO SCH (09:26)
[2019-01-05] MEDS: PRAVASTATIN SODIUM 40 MG TAB PO SCH (09:26)
[2019-01-05] MEDS: CHOLECALCIFEROL VIT D3 2,000 UNITS TAB/CAP PO SCH (09:26)
[2019-01-05] MEDS: METOPROLOL SUCCINATE XR 25 MG TAB PO SCH (09:29)
[2019-01-05] MEDS: FUROSEMIDE 40 MG TAB PO SCH (09:31)
--- NOTE | 2019-01-05 10:06 | HOSPPROG ---
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 ASSESSMENT/PLAN: L eye visual disturbance DEVELOPMENT TECHNICIAN vasculitis H/o recent L thalamic CVA, 2/2 vasculitis R eye blindness, 2/2 CVA Placoid pigment epitheliopathy Mood lability, 2/2 steroid AE HTN Arthritis Peripheral edema Acute on chronic debility/gait instability Morbid obesity Hyperglycemia Medication noncompliance (furosemide) -Had lengthy d/w PCP Dr. Fonseca and Rheum Dr. Griffin. -Explained to pt that we need to give furosemide bc it will be worse for her to get more edematous. She is upset about it, but agrees. DC all lines that are not necessary and discussed w/ RN to have COUNTRY PRINTER APPRENTICE check on pt regularly to a/w transfers/toileting. -High dose IV Solumedrol. SSI to help w/ hyperglycemia. -Bactrim DS for PJP ppx MWF. -Ativan prn anxiety/agitation/insomnia. Olanzapine prn psychosis/agitation. -Pt has appt w/ her retinal ophtho Dr. Sanders on Tuesday. Appt w/ her Rheum on Dr. Thomas. She will see PCP in the SNF. VTE prophylaxis: Lovenox GI ppx: famotidine. Code Status: Full code Status: Changing to inpatient for > 2 midnight stay, as she needs IV steroids and monitoring for side effects including hyperglycemia and extreme mood disturbance. Also she is unsafe to discharge to home as she is a high fall risk. Disposition: Med surge with discharge anticipated to [facility] tomorrow ____ SUBJECTIVE: Today the patient feels adames. Vision is about the same as it has been in the last week. She skipped her furosemide yesterday and today because she does not like waiting "an hour" for a nurse to disconnect her from lines and assist her to the bathroom. She does not want to use a bedside commode or a bedpan. OBJECTIVE: Physical Exam: General: The patient is a morbidly obese female who is alert and in no acute distress. HEENT: normocephalic, extraocular movements intact, conjunctivae clear. Mucous membranes moist. Neck: trachea midline, no visible masses. CV: +S1/S2, RRR, no MRG. Resp: unlabored, CTAB no RRW. Abd: soft and nondistended. Bowel sounds present. Musculoskeletal: Normal muscle tone/bulk. Neuro: cranial nerves II - XII grossly intact. Intact gross motor and sensory function. Psych: Anxious, tearful, depressed, angry mood and labile affect. Skin: Mild pallor. No petechiae. Heme/lymph: +4 pitting peripheral edema at bilateral ankles. Labs/Imaging/Other Tests: MRI brain w wo contrast: 1. Bilateral FLAIR signal abnormalities with differential considerations including chronic microvascular ischemic gliosis (secondary to vasculitis and/or atherosclerosis) , old posttraumatic or postinflammatory changes, or demyelination. 2. There are a couple of left-sided foci of hemosiderin deposition, which may be associated with tiny angiomas, or alternatively could represent early evidence of an amyloid angiopathy. 3. There is no abnormal cerebral or leptomeningeal enhancement, or evidence of an acute or subacute infarct. MRA brain wo contrast: Questionable areas of subtle luminal irregularity which may reflect an underlying vasculitis. There is no occlusive disease observed. Objective: Vital Signs Temp Pulse Resp BP Pulse Ox 36.7 C 90 18 146/78 H 94 01/05/19 07:37 01/05/19 09:29 01/05/19 07:37 01/05/19 09:29 01/05/19 07:37 Laboratory Results 01/05/19 04:31 01/05/19 04:31 01/04/19 01/05/19 01/06/19 05:59 05:59 05:59 Intake Total 500 Output Total 400 Balance 500 -400 PT 12.4 SEC (12.0-15.0) 01/04/19 20:19 INR 0.96 (0.83-1.16) 01/04/19 20:19 - Time Spent With Patient Time Spent with Patient: greater than 35 minutes Time Spent with Patient: Greater than 35 minutes spent on this patients care, greater than 50% of time spent counseling, educating, and coordinating care regarding the above mentioned plan. ICD10 Worksheet Patient Problems: Problems Problem Status Onset Cerebral vasculitis Acute
--- NOTE | 2019-01-05 11:46 | PDCONSULT ---
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 She was treated with a prednisone taper and started on Azathioprine 100mg She had been off of steroids for about two months. She reports that on Tuesday she had one or two episodes of darness in her visual field that lasted briefly. On Tuesday she had 2-3 episodes and by Tuesday she had 5-6 episodes that were about a minute or two in duration. She reports poor vision at baseline and did not think much of the changes initially. She was directed to the ER for IV steroids and MRI/MRA as her initial presentation also included a thalamic stroke. She has had her MRI/MRA with no new stroke and subtle vasculitis changes. She reports after one dose of IV steroids she has not had any episodes of the visual disturbances. She denies new symptoms. Unfortunately she reports a lot of residual symptoms from her prior prednisone course. This includes muscle weakness with significant difficulty with her lower extremity strength. She is just now feeling like her strength is returning. She had extreme emotional distress on prednisone with anhedonia and dysphoria. Significant insomnia as well. She also gained weight. In fact she felt so poorly on prednisone that she is not willing to go back on this regardless of the consquences. Home Medications: Aspirin EC [Aspirin EC 81 mg (*)] 81 mg PO DAILY Cholecalciferol Vit D3 [Vitamin D3 (*)] 2,000 units PO DAILY Cyanocobalamin [Vitamin B12 (*)] 1,000 mcg PO DAILY Furosemide [Lasix 40 MG (*)] 40 mg PO DAILY Metoprolol Succinate 25 mg PO DAILY Pravastatin Sodium [Pravachol] 80 mg PO DAILY Vit C/Dl-E AC/Lut/Copper/Znox [Preservision Softgel] 1 each PO DAILY azaTHIOprine [Imuran 50 mg (*)] 100 mg PO DAILY Current medications: Allergy/AdvReac Type Severity Reaction Status Date / Time No Known Allergies Allergy Verified 08/14/16 10:06 No Known Allergies Allergy (Verified 08/14/16 10:06) Generic Name Dose Route Start Last Admin Trade Name Pandaq PRN Reason Stop Dose Admin Acetaminophen 650 mg 01/04/19 22:43 Tylenol PO 07/03/19 22:42 Q4HRS PRN Pain, Mild/Fever, Can Take PO Azathioprine 100 mg 01/05/19 09:00 01/05/19 09:26 Imuran PO 07/04/19 08:59 100 mg DAILY QING Administration Cholecalciferol 2,000 units 01/05/19 09:00 01/05/19 09:26 Vitamin D PO 07/04/19 08:59 2,000 units DAILY QING Administration Famotidine 20 mg 01/05/19 10:00 Pepcid PO 07/04/19 09:59 DAILY QING Furosemide 40 mg 01/05/19 09:00 01/05/19 09:31 Lasix PO 07/04/19 08:59 Not Given DAILY [facility] Methylprednisolone Sodium 108 mls @ 108 mls/hr 01/05/19 11:00 Succinate 1 gm/ Dextrose IV 01/07/19 10:59 DAILY [facility] Metoprolol Succinate 25 mg 01/05/19 09:00 01/05/19 09:29 Toprol Xl PO 07/04/19 08:59 25 mg DAILY QING Administration Multivitamins/Minerals 1 each 01/05/19 08:00 01/05/19 09:26 Preservision Areds2 Formula PO 07/04/19 07:59 1 each DAILY@0800 QING Administration Ondansetron HCl 4 mg 01/04/19 22:43 Zofran IVP 07/03/19 22:42 Q4HRS PRN Nausea/Vomiting, Can't Take PO Ondansetron HCl 4 mg 01/04/19 22:43 Zofran Odt PO 07/03/19 22:42 Q4HRS PRN Nausea/Vomiting, Use 1st Pravastatin Sodium 80 mg 01/05/19 09:00 01/05/19 09:26 Pravachol PO 07/04/19 08:59 80 mg DAILY QING Administration Tramadol HCl 50 mg 01/05/19 00:20 01/05/19 01:11 Ultram PO 07/04/19 00:19 50 mg Q6HRS PRN Administration Pain, Moderate Able to Take PO Vitamin B Complex 1,000 mcg 01/05/19 09:00 01/05/19 09:25 Vitamin B12 PO 07/04/19 08:59 1,000 mcg DAILY QING Administration Discontinued Medications Generic Name Dose Route Start Last Admin Trade Name Simona PRN Reason Stop Dose Admin Gadobutrol Confirm 01/04/19 22:03 Gadavist 1 Mmol/Ml Administered 01/04/19 22:04 Dose 10 ml IVP .STK-MED ONE Methylprednisolone Sodium 100 mls @ 100 mls/hr 01/04/19 20:30 01/04/19 20:32 Succinate 1,000 mg/ Dextrose IV 01/04/19 21:29 100 mls EDNOW ONE Administration Methylprednisolone Sodium 108 mls @ 108 mls/hr 01/05/19 14:00 Succinate 1 gm/ Dextrose IV 01/06/19 09:59 DAILY QING Lorazepam 1 mg 01/04/19 20:50 01/04/19 21:40 Ativan Injection IVP 01/04/19 20:51 1 mg EDNOW ONE Administration Lorazepam Confirm 01/04/19 20:51 Ativan Injection Administered 01/04/19 20:52 Dose 2 mg .ROUTE .STK-MED ONE Lorazepam 1 mg 01/04/19 22:44 01/04/19 23:09 Ativan Injection IVP 01/04/19 22:45 1 mg EDNOW ONE Administration NKDA Symone lives alone, but has good support from [facility]. She reports several caring friends as well. She quit smoking last year. ROS is per the HPI. Otherwise she denied other complaints. EXAM Temp Pulse Resp BP Pulse Ox 36.7 C 84 17 137/89 H 92 01/05/19 11:36 01/05/19 11:36 01/05/19 11:36 01/05/19 11:36 01/05/19 11:36 O2 (L/minute) 2 Symone is in no distress on my exam. Normal pulmonary sounds at the bases. Heart is regular rate and rhythm. No tender or swollen joints. She does have lower extremity edema present bilaterally. 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 She is alert and oriented to place time and situation. Laboratory Results 01/05/19 04:31 01/05/19 04:31 01/05/19 01/05/19 01/05/19 09:58 04:31 04:31 WBC 3.71 10^3/uL L 10^3/uL (3.80-9.50) RBC 4.56 10^6/uL 10^6/uL (4.18-5.33) Hgb 13.4 g/dL g/dL (12.6-16.3) Hct 40.3 % % (38.0-47.0) MCV 88.4 fL fL (81.5-99.8) MCH 29.4 pg pg (27.9-34.1) MCHC 33.3 g/dL g/dL (32.4-36.7) RDW 14.5 % % (11.5-15.2) Plt Count 150 10^3/uL 10^3/uL (150-400) MPV 11.0 fL fL (8.7-11.7) Neut % (Auto) 92.0 % H % (39.3-74.2) Lymph % (Auto) 6.7 % L % (15.0-45.0) [place] % (Auto) 0.8 % L % (4.5-13.0) Eos % (Auto) 0.0 % L % (0.6-7.6) Baso % (Auto) 0.0 % L % (0.3-1.7) Nucleat RBC Rel Count 0.0 % % (0.0-0.2) Absolute Neuts (auto) 3.41 10^3/uL 10^3/uL (1.70-6.50) Absolute Lymphs (auto) 0.25 10^3/uL L 10^3/uL (1.00-3.00) Absolute Monos (auto) 0.03 10^3/uL L 10^3/uL (0.30-0.80) Absolute Eos (auto) 0.00 10^3/uL L 10^3/uL (0.03-0.40) Absolute Basos (auto) 0.00 10^3/uL L 10^3/uL (0.02-0.10) Absolute Nucleated RBC 0.00 10^3/uL 10^3/uL (0-0.01) Immature Gran % 0.5 % % (0.0-1.1) Immature Gran # 0.02 10^3/uL 10^3/uL (0.00-0.10) RBC/WBC/PLT Morphology TNP Platelet Estimate TNP Sodium 138 mEq/L mEq/L (135-145) Potassium 4.4 mEq/L mEq/L (3.5-5.2) Chloride 105 mEq/L mEq/L (97-110) Carbon Dioxide 25 mEq/l mEq/l (22-31) Anion Gap 8 mEq/L mEq/L (6-14) BUN 20 mg/dL mg/dL (7-23) Creatinine 0.8 mg/dL mg/dL (0.6-1.0) Estimated GFR > 60 Glucose 242 mg/dL H mg/dL (70-100) Calcium 9.2 mg/dL mg/dL (8.5-10.4) C-Reactive Protein < 5.0 mg/L mg/L (<10.0) Imaging Impressions Brain MRI 01/04/19 20:08 Impression: 1. Bilateral FLAIR signal abnormalities with differential considerations including chronic microvascular ischemic gliosis (secondary to vasculitis and/ or atherosclerosis), old posttraumatic or postinflammatory changes, or demyelination. 2. There are a couple of left-sided foci of hemosiderin deposition, which may be associated with tiny angiomas, or alternatively could represent early evidence of an amyloid angiopathy. 3. There is no abnormal cerebral or leptomeningeal enhancement, or evidence of an acute or subacute infarct. Head MRA 01/04/19 20:09 Impression: Questionable areas of subtle luminal irregularity which may reflect an underlying vasculitis. There is no occlusive disease observed. Assessment: Symone is a 58 year old female with known MORTGAGE PROCESSING MANAGER vasculitis with suspected flare 2 months after tapering off of steroids. Fortunately it appears this flare has been caught early given the MRI findings and her improved visual symptoms. IV steroids will need to be transitioned ot PO steroids. Unfortunately Symone is absolutely adamant that she not be put back on PO prednisone. I discussed that without steroid treatment she is at risk for blindness, stroke and . However, she was not willing to change her stance. However, she did agree to trying medrol which should be effective for the vasculitis. Discussed that side effects may be similar but she was willing to try. Plan: Plan was discussed with her primary gas transfer operator, Dr. Thomas, hospitalist, Dr. Rosario, web production manager, Dr. Sanders and her pcp, Dr. Fonseca. Continue IV solu-medrol 1gram IV X 3 days. She received her first dose last night but will move up timing to reduce night time side effects. She will receive her 2nd dose today and her 3rd dose tomorrow. From a rheumatologic standpoint she is okay for discharge tomorrow after her 3rd IV dose. Given her prior steroid side effects she may need some additional assistance. PAULINO and Dr. Fonseca are actively involved in discharge planning and anticipate a stepdown unit may be beneficial. She currently has follow up scheduled with Dr. Sanders on Tuesday. I have scheduled her an appointment with Dr. Thomas for Tuesday 01/09 at 11AM in our [place] office. She does not know this information so please make sure it is relayed to her and any step down unit she may move to. For discharge medications please continue her current dose of Azathioprine. Add Methylprednisolone 32mg 2 pills (total dose 64mg) q AM Add Bactrim DS Tue/Tue/Tue Add Pantoprazole 40mg PO qday (Dr. Fonseca may pre-enter meds for facility so will need to coordinate if she is handling prescriptions) Feel free to contact me with any additional questions or concerns.
[2019-01-05] MEDS: methylPREDNISolone SOD SUCC 1 GM in D5W 100 ML IV SCH (12:02)
[2019-01-05] MEDS ORDERED: methylPREDNISolone SOD SUCC 1 GM in D5W 100 ML IV SCH (14:00)
--- NOTE | 2019-01-05 14:34 | ASMTCMCOM ---
CM Note CM Note Notes: Patient admitted for episodes of transient blindness in R eye. She has a hx of a APMPPE and is followed by Dr Thomas of rheumatology. In fact, she has been scheduled for follow-up with him on Tuesday 01/09 @ 1100. She also has an appt w Dr Sanders of opthamology on Monday 01/08. She lives independently and participates in the [facility] program. Her rn social services at [facility] Nella ([phone]) reports that her PCP Dr Fonseca recommends SNF. They requested that we send a referral to [facility]. Pillo from [facility] here today to assess patient and accepts her for admission tomorrow. We will call [facility] for transport, as they are contracted by [facility] ([phone]). Date Signed: 01/05/2019 02:34 PM Electronically Signed By:Lupe Eugene RN
[2019-01-05] MEDS ORDERED: FUROSEMIDE 100 MG/10 ML VIAL IVP ONE (15:45)
[2019-01-05] MEDS ORDERED: FUROSEMIDE 80 MG in D5W 50 ML IV ONE (16:00)
[2019-01-05] MEDS ORDERED: LORazepam 2 MG/ML INJ IVP PRN (17:30)
[2019-01-05] MEDS ORDERED: LORazepam 1 MG TAB PO PRN (17:31)
[2019-01-05] MEDS ORDERED: OLANZapine 5 MG TAB PO PRN (17:32)
[2019-01-05] MEDS ORDERED: D50W 25 GM/50 ML SYR IVP PRN (17:49)
[2019-01-05] MEDS: ENOXAPARIN 40 MG/0.4 ML SYR SC SCH (17:52)
--- NOTE | 2019-01-05 18:14 | PDMN ---
Medical Necessity Medical necessity: MCG: GRG Head and neck disease: cerebral vasculitis req IV steroids, further monitoring, 58 yo F with PMHX: APMPPE last year- CTA showed SUTURE GAUGER vasculitis and R optic nerve infarction. pt has been off steroids X 2 months. Tuesday pt had 2 episodes of darkness, X2, tue X 5-6 episodes, also with muscle weakness with sig. difficulty in LE. status changed to INPT for ongoing med nec. > 2 MN- further monitoring and tx needed IV steroids with monitoring- pt also high fall risk.
[2019-01-05] MEDS: FAMOTIDINE 20 MG TAB PO SCH (18:21)
[2019-01-05] MEDS: INSULIN LISPRO 100 UNIT/ML SC SCH (18:59)
[2019-01-06] MEDS: FUROSEMIDE 40 MG TAB PO SCH (08:38)
[2019-01-06] MEDS: PRAVASTATIN SODIUM 40 MG TAB PO SCH (08:39)
[2019-01-06] MEDS: FAMOTIDINE 20 MG TAB PO SCH (08:39)
[2019-01-06] MEDS: METOPROLOL SUCCINATE XR 25 MG TAB PO SCH (08:39)
[2019-01-06] MEDS: PRESERVISION AREDS2 FORMULA EYE VIT 1 EACH PO SCH (08:39)
[2019-01-06] MEDS: CYANO/VITAMIN B12 1000 MCG TAB PO SCH (08:39)
[2019-01-06] MEDS: traMADol 50 MG TAB PO PRN (08:40)
[2019-01-06] MEDS: CHOLECALCIFEROL VIT D3 2,000 UNITS TAB/CAP PO SCH (08:40)
[2019-01-06] MEDS: azaTHIOprine 50 MG TAB PO SCH (08:40)
[2019-01-06] MEDS: ENOXAPARIN 40 MG/0.4 ML SYR SC SCH (08:43)
[2019-01-06] MEDS: INSULIN LISPRO 100 UNIT/ML SC SCH (08:43)
[2019-01-06] MEDS: methylPREDNISolone SOD SUCC 1 GM in D5W 100 ML IV SCH (08:45)
--- NOTE | 2019-01-06 10:57 | PDDCSUM ---
Discharge Summary Discharge Summary: Date of Admission: 01/04/2019 Date of Discharge: 01/06/2018 Discharge Diagnoses: L eye visual disturbance TRANSCRIPTIONIST vasculitis H/o recent L thalamic CVA, 2/2 vasculitis R eye blindness, 2/2 CVA Placoid pigment epitheliopathy Mood lability, 2/2 steroid AE HTN Arthritis Peripheral edema Acute on chronic debility/gait instability Morbid obesity Hyperglycemia, 2/2 steroid Admission Diagnoses: Left eye visual disturbance Hx placoid pigment epitheliopathy Hx TRANSCRIPTIONIST vasculitis Hx thalamic CVA HTN Arthritis Consultants: Rheumatology-Dr. 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 The patient was admitted and given high-dose IV steroids. Rheumatology was consulted and recommended the patient get high dose of IV steroids daily for 3 days, followed by oral steroid and Bactrim DS for pneumocystis jiroveci prophylaxis. The patient was then transferred to a senior living facility for continued medication management and monitoring. The patient developed a mood disturbance and hyperglycemia secondary to the steroid, but otherwise tolerated the the treatment. Physical Exam: Gen - alert, in NAD. Condition: Fair. Discharged to: [facility] Pertinent tests/labs/imaging: MRI brain w wo contrast: 1. Bilateral FLAIR signal abnormalities with differential considerations including chronic microvascular ischemic gliosis (secondary to vasculitis and/or atherosclerosis) , old posttraumatic or postinflammatory changes, or demyelination. 2. There are a couple of left-sided foci of hemosiderin deposition, which may be associated with tiny angiomas, or alternatively could represent early evidence of an amyloid angiopathy. 3. There is no abnormal cerebral or leptomeningeal enhancement, or evidence of an acute or subacute infarct. MRA brain wo contrast: Questionable areas of subtle luminal irregularity which may reflect an underlying vasculitis. There is no occlusive disease observed. Medications: Please see med rec form. New medications-lorazepam 1 mg orally every 4 hours as needed for anxiety, methylprednisolone 64 mg orally daily, olanzapine 5 mg once as needed for agitation, Protonix 40 mg orally daily, Bactrim DS 1 tab orally on MWF. Special instructions: Permanently Blind in R eye (from cerebral vasculitis event 03/13) daily vitals before furosemide and metoprolol administered. Call [facility] if Temp >99.5 (immunosuppressed so may not have high fever), BP< 100, Sat <90%, HR< 55 or >100. Call [facility] for new med orders if pt having significant anxiety or insomnia that cannot be alleviated by environmental means or reassurance (in case of such side effects from high dose steroid; we'll prescribe for lorazepam 0.5mg or olanzapine 2.5mg starting doses if needed) Follow up: Appointment with Dr Sanders on 01/[address] Thomas on Tuesday, 01/09 @11am. Follow up with PCP Dr. Mica Fonseca in 1-2 days at [facility]. > 30 minutes of total time was spent on counseling and coordination of care for this patient's discharge.
--- NOTE | 2019-01-06 11:04 | PDIAF ---
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 - Orders Services needed: Home Care, Registered Nurse, Certified Patients Transporter, Master Applique Cutter, Physical Therapy, Occupational Therapy Home Care Face to Face: I certify that this patient was under my care and that I had the required [id number] encounter meeting the encounter requirements on the discharge day. My findings support the fact that the patient is homebound as defined in Home Care Face to Face Continued: [facility] Chapter 7 Medicare Benefits Manual 30.1.1 , The condition of the patient is such that there exists a normal inability to leave home and consequently, leaving home would require a considerable and taxing effort. Isolation Type: None Diet Recommendation: no restrictions on diet Diet Texture: Regular Texture Diet Weigh Patient: daily Activity/Weight Bearing Restrictions: May need a/w transfers/walking if she continues to feel weak. Uses a rollator walker. 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 Call [facility] if Temp >99.5 (immunosuppressed so may not have high fever), BP< 100, Sat <90%, HR< 55 or >100. Call [facility] for new med orders if pt having significant anxiety or insomnia that cannot be alleviated by environmental means or reassurance (in case of such side effects from high dose steroid; we'll prescribe for lorazepam 0.5mg or olanzapine 2.5mg starting doses if needed) COR: DNR, Selective Tx (hospital [place]), no artificial nutrition - Follow Up Care Current Providers and Referrals: Sajan Sanders [Medical Doctor] - 1-2 days (for your Ophto. appt. 01/08/19 @ 15:10 ) Abdelrahman Thomas MD [Medical Doctor] - 3-5 days (Rheumatology appt - to discuss how to adjust steroid medication. 01/09/19 @ 11:00.) Mica Fonseca MD [Primary Care Provider] - 1-2 days (at nursing facility. To discuss side effects of medications and overall health.)
[2019-01-06 11:29] VITALS: BP 138/77
--- NOTE | 2019-01-06 11:59 | ASMTLACE ---
LUCIANAE Length of stay for Answers: 2 days current admission Acuity / Level of Answers: Yes Care: Did the patient have an inpatient admission? Comorbidities - select Answers: Cerebrovascular disease all that apply (CVA, TIA, aneurysms, vasc ular dementia) Congestive heart failure Opioid dependence / Chronic pain Other Notes: HTN # of Emergency department Answers: 1-2 visits in the last 6 months Score: 14 Date Signed: 01/06/2019 11:58 AM Electronically Signed By:Nupur Swan RN
--- NOTE | 2019-01-06 12:08 | ASMTDCNOTE ---
Case Management Discharge Discharge Order Complete? Answers: Yes Patient to Obtain Answers: Other Notes: [facility] Medications Transportation Arranged Answers: Other Notes: [facility] will Pick (Date 01/06/2019 12:00 PM & Time) Faxed Final Orders Answers: Yes Discharge Comments Notes: Tiffanie/mirian ORDONEZ, final orders faxed. Pillo madrigal notified, RN to call report. Date Signed: 01/06/2019 12:08 PM Electronically Signed By:Nupur Swan RN
== END 2019-01-06 12:24 | DRG 546 ==
LOC: F3N 23:30 → OBSVTOIN 01-05 18:00
PROVIDERS: ADMIT Student in an Organized Health Care Education/Training Program; ATTEND Internal Medicine
DX: I77.6 Arteritis, unspecified (principal); E66.01 Morbid (severe) obesity due to excess calories; Z68.42 Body mass index [BMI] 45.0-49.9, adult; I69.398 Other sequelae of cerebral infarction; H54.10 Blindness, one eye, low vision other eye, unspecified eyes; R45.86 Emotional lability; R73.9 Hyperglycemia, unspecified; T38.0X1A Poisoning by glucocorticoids and synthetic analogues, accidental (unintentional), initial encounter; I10 Essential (primary) hypertension; M19.90 Unspecified osteoarthritis, unspecified site; R60.9 Edema, unspecified; R26.81 Unsteadiness on feet; Z91.14 Patient's other noncompliance with medication regimen
CPT/HCPCS: 96365; 97165-GO; A9585; G0378; J1650; J1815; J1940; J2060; J2930; J7500